=== PATIENT | male | born 1960 | race Caucasian/White ===

== ENCOUNTER 2021-01-16 12:16 | Inpatient (IN) ==
[~2021-01-16 12:16] MED LIST: EPINEPHrine 1 MG/10 ML SYRINGE ONE; SODIUM BICARBONATE 50 MEQ/50 ML SYRINGE IV ONE
[2021-01-16] MEDS ORDERED: ACETAMINOPHEN 325 MG TABLET PO PRN (12:57)
[2021-01-16] MEDS ORDERED: ONDANSETRON 4 MG/2 ML VIAL IV PRN (12:57)
[2021-01-16] MEDS: SODIUM CHLORIDE 0.9% 1,000 ML IV SCH (16:02)
[2021-01-16] MEDS: LACTULOSE 20 GM/30 ML UDCUP PO SCH ×2 (17:08→21:17)
[2021-01-16] MEDS ORDERED: LACTULOSE 20 GM/30 ML UDCUP PO SCH (18:00)
[2021-01-16 18:50] LABS: INR 1.7; PT Patient Result 18.5 SECS (10.5-12.0); Partial Thromboplastin Time 34.3 SECS (23.8-32.1)
[2021-01-16 18:54] LABS: Bilirubin,Urine Negative (Negative); Blood, Urine Negative (Negative); Glucose,Urine (UA) Negative (Negative); Ketones,Urine Negative (Negative); Mucus,Urine Occasional /LPF (Occasional); Nitrite,Urine Negative (Negative); Protein,Urine Negative; RBC,Urine 2 /HPF (0-4); Urine Appearance CLEAR (Clear); Urine Color Yellow (Yellow); Urine Specific Gravity 1.006 (1.001-1.035); Urine Urobilinogen < 2.0 EU/DL (0.2-1.0)
[2021-01-16] MEDS: PANTOPRAZOLE 40 MG TABLET PO SCH (21:16)
[2021-01-17] MEDS: SODIUM CHLORIDE 0.9% 1,000 ML IV SCH ×2 (01:15→13:55)
[2021-01-17] MEDS: LACTULOSE 20 GM/30 ML UDCUP PO SCH ×2 (01:16→06:05)
[2021-01-17 06:22] LABS: Bilirubin,Total 4.4 MG/DL (0.20-1.00); Calcium 7.9 MG/DL (8.5-10.1); Osmolality,Calculated 287.6 MOS/KG (273-304); Potassium 3.7 MMOL/L (3.5-5.1); Total Protein 5.6 G/DL (6.4-8.2)
[2021-01-17] MEDS ORDERED: LEVOTHYROXINE 75 MCG TABLET PO SCH (06:30)
[2021-01-17] MEDS ORDERED: SPIRONOLACTONE 50 MG TABLET PO SCH (09:00)
[2021-01-17] MEDS: PANTOPRAZOLE 40 MG TABLET PO SCH (10:28)
[2021-01-17 11:35] VITALS: BP 134/68
[2021-01-17] MEDS ORDERED: LACTULOSE 20 GM/30 ML UDCUP PO SCH (12:00)
== END 2021-01-17 13:33 | disposition home or self-care (01) | DRG 443 ==
LOC: N.ADMINP 12:57 → N.5E 13:19
PROVIDERS: ADMIT Family Medicine; ATTEND Family Medicine

== ENCOUNTER 2022-02-22 04:57 | Inpatient (IN) ==
[2022-02-22] MEDS ORDERED: SODIUM CHLORIDE 0.9% 1,000 ML IV STA (05:43)
[2022-02-22] MEDS ORDERED: HYDROmorphone 1 MG/1 ML SYRINGE IV STA (05:43)
[2022-02-22] MEDS ORDERED: ONDANSETRON 4 MG/2 ML VIAL IV ONE (05:43)
[2022-02-22 05:59] LABS: Albumin 3.6 G/DL (3.4-5.0); Bilirubin,Total 0.4 MG/DL (0.20-1.00); Calcium 8.9 MG/DL (8.5-10.1); Osmolality,Calculated 290.3 MOS/KG (273-304); Total Protein 6.3 G/DL (6.4-8.2)
[2022-02-22 06:09] LABS: Basophils % 0.6 % (0.0-0.8); Eosinophils # 0.1 10*3/uL (0.0-0.87); Eosinophils % 1.8 % (0.00-10.9); Hematocrit 30.4 VOL% (42.0-52.0); Hemoglobin 9.9 GM/DL (14.0-18.0); Immature Granulocytes % 6.9 %; Immature Granulocytes Absolute 0.49 #; Lymphocytes % 28.2 % (21.2-54.2); Mean Corpuscular HGB Conc 32.6 GM/DL (32-36); Mean Corpuscular Volume 95.9 FL (87-102); Mean Platelet Volume 10.1 FL (9.6-12.0); Monocytes # 0.5 10*3/uL (0.11-0.8); Monocytes % 7.1 % (1.7-12.7); Neutrophils % 55.4 % (38.7-73.9); Platelet Count 181 T/CUMM (130-400); Red Blood Count 3.17 MC/CUMM (3.8-5.5); Red Cell Distribution Width 15.7 % (9.3-17.3); White Blood Count 7.1 T/CUMM (4-12)
[2022-02-22 06:48] LABS: Band Neutrophils 9 % (0-10); Eosinophils 3 % (0-10); Lymphocytes 31 % (20-55); Platelet Estimate Normal; Total Cells Counted 100
[2022-02-22 06:49] LABS: Anisocytosis 1+; Atypical Lymphocytes Few; Burr Cells Few; Macrocytosis Slight
[2022-02-22] MEDS ORDERED: LIDOCAINE 1%/EPI INJ 20 ML VIAL ONE (06:51)
[2022-02-22] MEDS ORDERED: ONDANSETRON 4 MG/2 ML VIAL IV PRN (07:12)
[2022-02-22] MEDS ORDERED: MAGNESIUM HYDROXIDE SUSP 30 ML UDCUP PO PRN ×2 (07:12→12:10)
[2022-02-22 07:30] LABS: INR 1.1; PT Patient Result 11.9 SECS (10.1-12.1); Partial Thromboplastin Time 25.6 SECS (23.7-32.9)
[2022-02-22] MEDS: SODIUM CHLORIDE 0.9% 1,000 ML IV SCH (08:45)
[2022-02-22] MEDS: HYDROmorphone 1 MG/1 ML SYRINGE IV PRN ×2 (08:47→20:52)
[2022-02-22] MEDS ORDERED: PANTOPRAZOLE 40 MG TABLET PO SCH (09:00)
[2022-02-22] MEDS ORDERED: ceFAZolin 2,000 MG/50 ML DUPLEX IV ONE (11:00)
[2022-02-22] MEDS ORDERED: LACTULOSE 20 GM/30 ML UDCUP PO PRN (12:10)
[2022-02-22] MEDS ORDERED: BISACODYL 10 MG SUPP RECTAL PRN (12:10)
[2022-02-22] MEDS ORDERED: diphenhydrAMINE CAP 25 MG CAPSULE PO PRN (12:10)
[2022-02-22] MEDS ORDERED: MIDAZOLAM 2 MG/2 ML VIAL ONE (12:13)
[2022-02-22] MEDS ORDERED: fentaNYL 250 MCG/5 ML VIAL ONE (12:13)
[2022-02-22] MEDS ORDERED: PHENYLEPHRINE 1 MG/10 ML SYRINGE IV ONE ×2 (12:13→12:52)
[2022-02-22] MEDS ORDERED: propofoL 200 MG/20 ML VIAL IV ONE (12:13)
[2022-02-22] MEDS ORDERED: ROCURONIUM 50 MG/5 ML VIAL IV ONE (12:13)
[2022-02-22] MEDS ORDERED: ONDANSETRON 4 MG/2 ML VIAL ONE (12:13)
[2022-02-22] MEDS ORDERED: LIDOCAINE 2% 5 ML VIAL ONE (12:13)
[2022-02-22] MEDS ORDERED: SEVOFLURANE 1 UNIT/15 MINUTE INH ONE (12:13)
[2022-02-22] MEDS ORDERED: ceFAZolin 1,000 MG VIAL ONE (12:42)
[2022-02-22] MEDS ORDERED: LACTATED RINGERS 1,000 ML IV ONE (13:06)
[2022-02-22] MEDS ORDERED: ACETAMINOPHEN INJ 1,000 MG/100 ML VIAL IV ONE (13:26)
[2022-02-22] MEDS ORDERED: GLYCOPYRROLATE 0.4 MG/2 ML VIAL ONE (13:30)
[2022-02-22] MEDS ORDERED: NEOSTIGMINE 10 MG/10 ML VIAL ONE (13:30)
[2022-02-22] MEDS ORDERED: METHOCARBAMOL 500 MG TABLET PO PRN (15:27)
[2022-02-22] MEDS: ceFAZolin 2,000 MG/50 ML DUPLEX IV SCH (18:19)
[2022-02-22] MEDS: MYCOPHENOLATE MOFETIL 250 MG CAPSULE PO SCH (20:10)
[2022-02-22] MEDS: MAGNESIUM CHLORIDE 64 MG TABLET PO SCH (20:11)
[2022-02-23] MEDS: SODIUM CHLORIDE 0.9% 1,000 ML IV SCH (02:09)
[2022-02-23] MEDS: ceFAZolin 2,000 MG/50 ML DUPLEX IV SCH ×2 (02:11→16:28)
[2022-02-23] MEDS: HYDROmorphone 1 MG/1 ML SYRINGE IV PRN ×2 (04:14→10:46)
[2022-02-23 05:40] LABS: Basophils % 0.3 % (0.0-0.8); Eosinophils # 0.1 10*3/uL (0.0-0.87); Eosinophils % 1.2 % (0.00-10.9); Hematocrit 24.6 VOL% (42.0-52.0); Immature Granulocytes % 7.6 %; Immature Granulocytes Absolute 0.45 #; Lymphocytes # 0.8 10*3/uL (1.4-4.0); Lymphocytes % 13.9 % (21.2-54.2); Mean Corpuscular HGB Conc 32.1 GM/DL (32-36); Mean Corpuscular Volume 98.4 FL (87-102); Mean Platelet Volume 10.1 FL (9.6-12.0); Monocytes # 0.6 10*3/uL (0.11-0.8); Monocytes % 9.5 % (1.7-12.7); Neutrophils % 67.5 % (38.7-73.9); Red Cell Distribution Width 15.9 % (9.3-17.3); White Blood Count 5.9 T/CUMM (4-12)
[2022-02-23 05:51] LABS: Calcium 7.9 MG/DL (8.5-10.1); Osmolality,Calculated 282.7 MOS/KG (273-304); Potassium 4.8 MMOL/L (3.5-5.1)
[2022-02-23 06:07] LABS: Hemoglobin 7.9 GM/DL (14.0-18.0); Platelet Count 132 T/CUMM (130-400)
[2022-02-23] MEDS: LEVOTHYROXINE 75 MCG TABLET PO SCH (06:55)
[2022-02-23 07:56] LABS: Band Neutrophils 24 % (0-10); Eosinophils 4 % (0-10); Lymphocytes 15 % (20-55); Metamyelocytes 3 %; Platelet Estimate Adequate; Total Cells Counted 100
[2022-02-23 07:57] LABS: Anisocytosis 1+; Macrocytosis Slight
[2022-02-23] MEDS: MYCOPHENOLATE MOFETIL 250 MG CAPSULE PO SCH ×2 (13:42→20:25)
[2022-02-23] MEDS: MAGNESIUM CHLORIDE 64 MG TABLET PO SCH ×2 (13:43→20:25)
[2022-02-23] MEDS: predniSONE 5 MG TABLET PO SCH (13:43)
[2022-02-23] MEDS: CHOLECALCIFEROL 5,000 UNIT TABLET PO SCH (13:44)
[2022-02-23] MEDS: TAMSULOSIN 0.4 MG CAPSULE PO SCH (13:44)
[2022-02-23] MEDS: ASPIRIN CHEW 81 MG TABLET PO SCH (13:44)
[2022-02-23] MEDS: NON-FORMULARY MEDICATION PO SCH (13:44)
[2022-02-23] MEDS: PANTOPRAZOLE 40 MG TABLET PO SCH (13:45)
[2022-02-24 04:38] LABS: Basophils % 0.4 % (0.0-0.8); Eosinophils # 0.1 10*3/uL (0.0-0.87); Eosinophils % 1.6 % (0.00-10.9); Hemoglobin 7.4 GM/DL (14.0-18.0); Lymphocytes % 14.6 % (21.2-54.2); Mean Corpuscular HGB Conc 32.2 GM/DL (32-36); Mean Platelet Volume 9.8 FL (9.6-12.0); Monocytes # 0.6 10*3/uL (0.11-0.8); Monocytes % 8.8 % (1.7-12.7); Neutrophils % 64.6 % (38.7-73.9); Platelet Count 119 T/CUMM (130-400); Red Blood Count 2.37 MC/CUMM (3.8-5.5); Red Cell Distribution Width 15.4 % (9.3-17.3)
[2022-02-24 04:58] LABS: Eosinophils 2 % (0-10); Lymphocytes 15 % (20-55); Total Cells Counted 100
[2022-02-24] MEDS: LEVOTHYROXINE 75 MCG TABLET PO SCH (06:02)
[2022-02-24] MEDS ORDERED: SODIUM CHLORIDE 0.9% 1,000 ML IV PRN (08:27)
[2022-02-24] MEDS: NON-FORMULARY MEDICATION PO SCH (09:44)
[2022-02-24] MEDS: TAMSULOSIN 0.4 MG CAPSULE PO SCH (09:44)
[2022-02-24] MEDS: MYCOPHENOLATE MOFETIL 250 MG CAPSULE PO SCH (09:44)
[2022-02-24] MEDS: predniSONE 5 MG TABLET PO SCH (09:44)
[2022-02-24] MEDS: MAGNESIUM CHLORIDE 64 MG TABLET PO SCH (09:45)
[2022-02-24] MEDS: CHOLECALCIFEROL 5,000 UNIT TABLET PO SCH (09:46)
[2022-02-24] MEDS: ASPIRIN CHEW 81 MG TABLET PO SCH (09:46)
[2022-02-24] MEDS: PANTOPRAZOLE 40 MG TABLET PO SCH (09:47)
[2022-02-24 15:26] VITALS: BP 125/57
== END 2022-02-24 17:17 | disposition home health service (06) | DRG 481 ==
LOC: EDBD → EDUNIT# → N.ED 04:57 → N.3E 07:12
PROVIDERS: ADMIT Family Medicine; ATTEND Family Medicine